=== PATIENT | male | born 1985 | race Caucasian/White ===

== ENCOUNTER → 2016-08-03 | Outpatient (CLI) | payer OTHER | END | disposition home or self-care (01) | LOC: C.RDSM 09:44 | PROVIDERS: ATTEND Family Medicine Sports Medicine | DX: M25.561 Pain in right knee (principal) ==

== ENCOUNTER → 2016-10-04 | Outpatient (CLI) | payer OTHER ==
--- NOTE | 2016-10-04 09:30 | DIAGNOSTIC IMAGING REPORT ---
RIGHT THUMB 3 VIEWS HISTORY: RIGHT THUMB PAIN Right COMPARISON: None. FINDINGS: There is no fracture or dislocation. Mild soft tissue swelling at the first MCP joint. There is a 2 mm metallic foreign body dorsal to the first MCP joint within the soft tissues. IMPRESSION: A 2 mm metallic foreign body within the soft tissues adjacent to the first MTP joint. Electronically signed by: Yoseph Wang M.D. 10/04/2016 9:28 AM Dictated Date/Time: 10/04/2016 9:24 AM
== END | disposition home or self-care (01) ==
LOC: C.RDSM 13:45
PROVIDERS: ATTEND Physician Assistant
DX: S60.351A Superficial foreign body of right thumb, initial encounter (principal); M79.644 Pain in right finger(s); X58.XXXA Exposure to other specified factors, initial encounter